=== PATIENT | female | born 1940 | race Caucasian/White ===

== ENCOUNTER → 2017-09-14 | Outpatient (CLI) | payer OTHER ==
[2015-05-10 11:06] VITALS: BP 112/52
[~2017-09-14] MED LIST: ALPR0.5T PO; ALPR0.5T6 PO; ASPI81TA44 PO; CHOL10003 PO; Enoxaparin Sodium SQ; FURO-69 PO; Hydrocodone/Acetaminophen PO; Ipratropium/Albuterol Sulfate NEB; LEVO750T31 PO; Lisinopril PO; MULT1TAB90 PO; Ondansetron Hcl/Pf PO; PANT40TA3 PO; PRAV40TA2 PO; SERT25TA PO; Sennosides/Docusate Sodium PO
--- NOTE | 2017-09-16 09:48 | KCIC ---
Bilateral digital screening mammograms: Reason for examination: Routine screening. Comparison is made to previous studies dated 08/27/2015 and 08/07/2016. Interpretation was made with the benefit of CAD. The skin and nipples show no abnormalities. No abnormal axillary lymph nodes are seen. The breast parenchyma shows scattered fibroglandular density. (Breast density: Category B.) There has been interval decrease in the size of the nodule seen previously in the right breast. There are no new dominant masses, suspicious calcifications or architectural distortions. Some benign calcifications are present. Impression: No evidence of malignancy. Recommend routine screening. BI-RADS category 2: Benign "Our facility is accredited by the [employer] Mammography [employer]." This patient's information has been entered into a reminder system for the patient to be notified with the results of her examination and a target date for the next mammogram. Electronically signed by: Estee Patel MD (09/16/2017 9:45 AM) [id number]
== END | disposition home or self-care (01) ==
LOC: KCIC MAMMO 07:47
PROVIDERS: ATTEND Family Medicine
DX: Z12.31 Encounter for screening mammogram for malignant neoplasm of breast (principal)
CPT/HCPCS: G0202; 77067

== ENCOUNTER → 2019-07-11 | Outpatient (CLI) | payer MEDICARE, OTHER ==
[2015-05-10 11:06] VITALS: BP 112/52
[~2019-07-11] MED LIST changes: -ASPI81TA44 PO; +ASPI81TA59 PO; -PANT40TA3 PO; +PANT40TA77 PO
--- NOTE | 2019-07-11 12:12 | KCIC ---
EXAM: Bilateral screening mammogram. HISTORY: 79-year-old female presents for screening mammography. TECHNIQUE: Full-field digital craniocaudal and mediolateral oblique views of both breasts are obtained for evaluation. Computer aided detection with [employer] software version 9.3 was applied. COMPARISON: 09/14/2017 and 08/07/2016 BREAST PARENCHYMAL DENSITY: Level B - Scattered fibroglandular densities. FINDINGS: There is no new suspicious mass, microcalcification or region of architectural distortion. There is a small focal asymmetry within the lateral aspect of the right breast in the craniocaudal projection. The absence of a correlate in the mediolateral oblique projection or summation artifact. There are few benign calcifications. IMPRESSION: BI-RADS Category 2: Benign finding(s). RECOMMENDATION: Annual mammography is recommended. If your mammogram demonstrates that you have dense breast tissue, which could hide abnormalities, and if you have other risk factors for breast cancer that have been identified, you might benefit from supplemental screening tests that may be suggested by your ordering physician. Dense breast tissue, in and of itself, is a relatively common condition. This information is not provided to cause undue concern, but rather to raise your awareness and to promote discussion with your physician regarding the presence of other risk factors, in addition to dense breast tissue. A report of your mammography results will be sent to you and your physician. You should contact your physician if you have any questions or concerns regarding this report. Mammography is a sensitive method for finding small breast cancers, but it does not detect them all and is not a substitute for careful clinical examination. A negative mammogram does not negate a clinically suspicious finding and should not result in delay in biopsying a clinically suspicious abnormality. PQRS compliance statement - Patient information was entered into a reminder system with a target due date for the next mammogram. "Our facility is accredited by the [employer] Mammography [employer]." Electronically signed by: Yaima Bess MD (07/11/2019 12:09 PM) [id number]
== END | disposition home or self-care (01) ==
LOC: KCIC MAMMO 10:05
PROVIDERS: ATTEND Family Medicine
DX: Z12.31 Encounter for screening mammogram for malignant neoplasm of breast (principal); N64.89 Other specified disorders of breast
CPT/HCPCS: 77067

== ENCOUNTER → 2020-05-24 | Outpatient (CLI) | payer MEDICARE ==
[2019-11-28 11:00] VITALS: BP 101/38
[~2020-05-24] MED LIST changes: +LEVO75TA5 PO
--- NOTE | 2020-05-24 13:02 | RAD ---
EXAM: Triple phase bone scintigraphy. HISTORY: Fall, fracture fixation, left groin and hip pain. COMPARISON: 01/03/2020. FINDINGS: 25 mCi Tc-99m MDP was administered intravenously. Scintigraphic images of the pelvis and femurs was performed in angiographic, immediate and delayed phases. There is no abnormally increased uptake on angiographic or immediate images about the hips. A photopenic focus anteriorly at the right hip may be something overlying the patient, versus a soft tissue collection. Delayed images demonstrate no abnormal uptake about the hips. Specifically, there is normal uptake about gamma nail fixation of a left proximal femoral fracture. More distally, there is intense uptake along the oblique fracture line traversing the distal femoral metaphysis. There is mild uptake along the footplate of the lateral fixation plate and its fixation screws. There is moderate uptake along the left proximal fibular neck, consistent with a subacute fracture. There is mildly increased uptake along the medial compartment of the right knee, consistent with osteoarthritis. IMPRESSION: 1. Residual intense uptake along the oblique fracture of the left distal femoral metaphysis status post internal fixation. Comparison with plain radiographs is recommended to exclude developing nonunion neck, and follow-up through solid healing is recommended. No clear abnormal uptake is appreciated along the fixation hardware. 2. Healing or healed fracture of the left proximal fibular metaphysis. 3. A photopenic focus anteriorly overlying the right hip may be an artifact, or a soft tissue collection. Electronically signed by: Brianna Murillo MD (05/24/2020 12:59 PM) [id number]
== END | disposition home or self-care (01) ==
LOC: NM 09:26
PROVIDERS: ATTEND Physician Assistant
DX: M17.5 Other unilateral secondary osteoarthritis of knee (principal); R10.32 Left lower quadrant pain; M25.552 Pain in left hip; Z47.2 Encounter for removal of internal fixation device
CPT/HCPCS: 78315; A9503

== ENCOUNTER → 2020-06-11 | Outpatient (CLI) | payer MEDICARE ==
[2019-11-28 11:00] VITALS: BP 101/38
--- NOTE | 2020-06-11 13:52 | RAD ---
Examination: Ultrasound kidneys HISTORY: History of chronic back pain COMPARISON: None available. FINDINGS: The right kidney measures 9.8 x 4.60 5.8 cm. The left kidney measures 10.9 x 4.7 x 4.9 cm. There is a 2.5 cm cystic structure identified in the superior pole of the left kidney. The urinary bladder is mildly distended. Incidental note of prominent appearing common bile duct measuring 1.6 cm in diameter. IMPRESSION: 1. 2.5 cm cystic structure identified in the left kidney could be a cyst or cystic lesion. Consider CT urogram follow-up. 2. Prominent appearing common bile duct measuring 1.6 cm in diameter, could be distal common bile duct obstruction or post cholecystectomy changes. Correlate with lab values. Electronically signed by: Serafin Gifford MD (06/11/2020 1:49 PM) [id number]
== END ==
LOC: US 11:31
PROVIDERS: ATTEND Family Medicine
DX: R93.422 Abnormal radiologic findings on diagnostic imaging of left kidney (principal); M54.9 Dorsalgia, unspecified; K83.1 Obstruction of bile duct
CPT/HCPCS: 76770

== ENCOUNTER → 2021-05-20 | Outpatient (CLI) | payer MEDICARE ==
[2019-11-28 11:00] VITALS: BP 101/38
[~2021-05-20] MED LIST changes: -MULT1TAB90 PO; +MULT1TAB92 PO
--- NOTE | 2021-05-20 15:54 | KCIC ---
Bilateral digital screening mammograms: Reason for examination: Routine screening. Comparison is made to previous study dated 07/11/2019, of 08/07/2016. Interpretation was made with the benefit of CAD. Findings: Breast density: Category B. There are scattered areas of fibroglandular density.. There are no suspicious masses, malignant appearing calcifications or architectural distortions. Impression: No evidence of malignancy. ASSESSMENT: BI-RADS 1. Negative. Recommendation: Routine screening mammograms. This patient's information has been entered into a reminder system for the patient to be notified wit h the results of this examination and a target date for her next mammogram. Electronically signed by: Katiana García MD (05/20/2021 3:52 PM) [id number]
== END ==
LOC: KCIC MAMMO 12:18
PROVIDERS: ATTEND Family Medicine
DX: Z12.31 Encounter for screening mammogram for malignant neoplasm of breast (principal)
CPT/HCPCS: 77067